=== PATIENT | female | born 1950 | race Caucasian/White ===

== ENCOUNTER 2019-01-23 12:16 | Observation (INO) | payer MEDICARE, BC ==
[2019-01-23] MEDS ORDERED: HYDROcodone/ACETAMIN 5-325 MG* 1 TAB PO ONE (12:44)
--- NOTE | 2019-01-23 13:02 | ED ---
Lower Extremity - HPI Summary HPI Summary: The patient is a 68 year old F presenting to [facility] accompanied by her son with a chief complaint of R leg pain after a fall that occurred at 1000 this morning. The pt states that she was gardening when she slipped on a wet rock and her R leg slid out laterally from under her. She reports that the pain was immediate and that it is rated an 8/10. She states that she has pain with ROM and cannot fully straighten her leg due to pain and swelling. She took ASA for the pain after the fall occurred with little relief. She is unable to bear weight on her right side. She was also unable to remove her R shoe without pain. Symptoms are aggravated by movement and weight bearing but are slightly alleviated by ASA and rest. - History of Current Complaint Chief Complaint: EDHipPelvisInjury Stated Complaint: LEFT HIP PAIN PER PT Time Seen by Provider: 01/23/19 12:28 Hx Obtained From: Patient Mechanism Of Injury: Fall From A Standing Position - slipped on a rock while gardening Onset of Pain: Immediate Onset/Duration: Still Present - since 1000 am today Severity Initially: Severe Severity Currently: Severe Pain Intensity: 8 Pain Scale Used: 0-10 Numeric Timing: Constant, Lasting Hours - since 1000 Location: Is Diffuse - R leg Associated Signs And Symptoms: Positive: Swelling, Knee Pain, Other - pain with ROM Aggravating Factor(s): Movement, Weight Bearing Alleviating Factor(s): Rest, OTC Meds - Allergies/Home Medications Allergies/Adverse Reactions: Allergies Allergy/AdvReac Type Severity Reaction Status Date / Time No Known Allergies Allergy Verified 01/23/19 12:54 Home Medications: Home Medications Cetirizine* [ZyrTEC 10 MG TAB*] 10 mg PO DAILY 01/23/19 [History Confirmed 01/23] Fluticasone NASAL SPRAY 50MCG* [Flonase NASAL SPRAY 50MCG*] 2 spray BOTH NARES DAILY 01/23/19 [History Confirmed 01/23/19] Vit B12/Pyridoxine/Thiamine [Apatate] 1 liq PO DAILY 01/23/19 [History Confirmed 01/23/19] PMH/Surg Hx/FS Hx/Imm Hx Previously Healthy: No Cardiovascular History: Denies: Hx Angina, Hx Coronary Artery Disease, Hx Hypercholesterolemia, Hx Hypertension, Hx Myocardial Infarction, Hx Valvular Heart Disease Respiratory History: Denies: Hx Asthma, Hx Chronic Obstructive Pulmonary Disease (COPD) - Cancer History Hx Chemotherapy: No Hx Radiation Therapy: No - Surgical History Surgical History: None Infectious Disease History: No Infectious Disease History: Denies: Traveled Outside the [place] in Last 30 Days - Family History Known Family History: Negative: Hypertension, Diabetes - Social History Alcohol Use: Occasionally Hx Substance Use: No Substance Use Type: Reports: None Hx Tobacco Use: No Smoking Status (MU): Never Smoked Tobacco Review of Systems Positive: Decreased ROM - R leg, Other - R leg pain Positive: Other - swelling All Other Systems Reviewed And Are Negative: Yes Physical Exam - Summary Physical Exam Summary: Appearance: The patient is well-nourished in no acute distress and in no acute pain. Skin: The skin is warm and dry and skin color reflects adequate perfusion. HEENT: The head is normocephalic and atraumatic. The pupils are equal and reactive. The conjunctivae are clear and without drainage. Nares are patent and without drainage. Mouth reveals moist mucous membranes and the throat is without erythema and exudate. The external ears are intact. The ear canals are patent and without drainage. The tympanic membranes are intact. Neck: The neck is supple with full range of motion and non-tender. There are no carotid bruits. There is no neck vein distension. Respiratory: Chest is non-tender. Lungs are clear to auscultation and breath sounds are symmetrical and equal. Cardiovascular: Heart is regular rate and rhythm. There is no murmur or rub auscultated. There is no peripheral edema and pulses are symmetrical and equal. Abdomen: The abdomen is soft and non-tender. There are normal bowel sounds heard in all four quadrants and there is no organomegaly palpated. Musculoskeletal: There is no back tenderness noted. Prefers to hold R leg with hip flexed. Tender to ROM. There is good capillary refill. There is no peripheral edema or calf tenderness elicited. Neurological: Patient is alert and oriented to person, place and time. The patient has symmetrical motor strength in all four extremities. Cranial nerves are grossly intact. Deep tendon reflexes are symmetrical and equal in all four extremities. Psychiatric: The patient has an appropriate affect and does not exhibit any anxiety or depression Triage Information Reviewed: Yes Vital Signs Reviewed: Yes Diagnostics - Laboratory Result Diagrams: 01/24/19 06:15 01/24/19 06:15 Lab Statement: Any lab studies that have been ordered have been reviewed, and results considered in the medical decision making process. - Radiology Hip/Pelvis X Ray Radiology Interpretation Completed By: Radiologist Summary of Radiographic Findings: NO EVIDENCE FOR FRACTURE, IF THE PATIENT'S SYMPTOMS PERSIST RECOMMEND FOLLOW-UP IMAGING. ED Physician has reviewed this report. - CT Lower Extremity CT CT Interpretation Completed By: Radiologist Summary of CT Findings: NO ACUTE OSSEOUS INJURY. IF SYMPTOMS PERSIST, RECOMMEND REPEAT IMAGING. ED Physician has reviewed this report Re-Evaluation - Re-Evaluation First Eval Re-Evaluation Time: 14:17 Change: Unchanged Comment: Pt was updated about her X Ray findings. Pt was also informed on discharge plan and will be instructed to follow up with your primary care physician in 2-3 days and return to the emergency room for any new or worsening symptoms. Pt declined discharge and wanted another CT of her Lower extremity. Second Eval Re-Evaluation Time: 17:29 Change: Unchanged Comment: Pt's CT of her LE came back negative. The pt still is unable to walk and ambulate due to pain. Pt will be given pain medication. Lower Extremity Course/Dx - Course Course Of Treatment: Ms. Murray has an atypical and severe pain in her right posterior thigh after and abduction injury. She does not appear to be tender at the insertion of her muscles on the pelvis. X-rays negative for any fracture as is CT. She continues to have spasms of pain and neurovascular and motor are intact otherwise. I cannot get her to ambulate after giving her parenteral narcotics and Ativan as a muscle relaxer. She's also had parenteral Toradol. She lives in a single floor with an easy walk and however she cannot ambulate at all with crutches. She does live alone and therefore I have asked the hospitalist to consult. - Diagnoses Provider Diagnoses: Muscle strain of right lower leg - Physician Notifications Discussed Care Of Patient With: Lia Montaño Time Discussed With Above Provider: 18:18 Instructed by Provider To: Other - Discused case with Dr. Montaño, Hospitalist, who is going to evaluate the pt for possible admission. Discharge - Sign-Out/Discharge Documenting (check all that apply): Patient Departure - discharge Patient Received Moderate/Deep Sedation with Procedure: No - Discharge Plan Condition: Stable Disposition: HOME - Billing Disposition and Condition Condition: STABLE Disposition: Home - Attestation Statements Document Initiated by Scribe: Yes Documenting Scribe: Derik Taylor Provider For Whom Scribe is Documenting (Include Credential): Ronak Wilson MD Scribe Attestation: IDerik, scribed for Ronak Wilson MD on 01/24/19 at 0804. Scribe Documentation Reviewed: Yes Provider Attestation: The documentation as recorded by the Derik toney accurately reflects the service I personally performed and the decisions made by me, Ronak Wilson MD Status of Scribe Document: Viewed
[2019-01-23] MEDS ORDERED: LORazepam TAB(*) 1 MG PO ONE (16:57)
[2019-01-23] MEDS ORDERED: Ketorolac INJ* 30 MG/ML 1 ML VIAL IM ONE (16:57)
[2019-01-23] MEDS ORDERED: Lorazepam PYXIS KEY ONE (17:07)
[2019-01-23] MEDS ORDERED: Ondansetron INJ* 2 MG/ML VIAL IV ONE (18:19)
[2019-01-23] MEDS ORDERED: HYDROmorphone INJ1* 1 MG/ML SYRINGE IV SLOW PU ONE (18:19)
[2019-01-23] MEDS ORDERED: Acetaminophen TAB* 325 MG PO PRN (20:14)
[2019-01-23] MEDS ORDERED: oxyCODONE/Acetamin 5/325 MG* TAB PO PRN (20:14)
[2019-01-23] MEDS ORDERED: Morphine INJ* 2 MG/ML 1 ML SYRINGE (TWO MG - NEW SYRINGE VERSION) IV PRN (20:14)
--- NOTE | 2019-01-23 21:53 | HP ---
Amended report to enter cosigning physician. CC: Dr. Kathryn Bliss* HISTORY AND PHYSICAL: DATE OF ADMISSION: 01/23/19 PRIMARY CARE PROVIDER: Dr. Kathryn Bliss. ATTENDING PHYSICIAN: Dr. Montaño* (dictated by Hector Saeg NP). CHIEF COMPLAINT: 1. Right hip pain. 2. Status post fall. HISTORY OF PRESENT ILLNESS: Mrs. Murray is a 68-year-old female with no significant past medical history, who presented to the emergency department today, status post of mechanical fall with right hip pain. While in the emergency department, the patient had right hip and pelvis x-ray, and the right lower extremity CT, both of which showed no evidence of fracture. The patient was provided with p.o. pain medication and IM Toradol. ED provider and ED nurse attempted to walk the patient and she was unable to walk due to pain. Therefore, the patient was given IV Dilaudid and the hospitalists were asked to evaluate for admission. PAST MEDICAL HISTORY: No significant past medical history. PAST SURGICAL HISTORY: No surgical history. HOME MEDICATIONS: 1. Vitamin B12/pyridoxine/thiamine 1 liquid p.o. daily. 2. Flonase 2 sprays both nares daily. 3. Vitamin D 1000 units p.o. weekly. 4. Zyrtec 10 mg p.o. daily. ALLERGIES: The patient has no known drug allergies. FAMILY HISTORY: The patient reports her mother at age 96 of old age and possibly had a history of CAD. The patient reports her dad had multiple strokes and is now . SOCIAL HISTORY: The patient denies tobacco use. The patient reports rare alcohol use. The patient denies drug use. The patient is retired. The patient lives with her . The patient is independent in her ADLs. REVIEW OF SYSTEMS: The patient reports right hip pain, it starts at right hip and extends to right knee. The patient reports the pain was 9/10 on admission, but after pain medication, it is now as 3/10. The patient reports aggravated factors include movement. The patient reports alleviated factors include rest. The patient denies numbness or tingling. The patient denies weakness. A 14- point review of systems was completed and all others were negative. PHYSICAL EXAMINATION GENERAL: Mrs. Murray is a 68-year-old female, who is lying in bed. Appears to be in no acute distress. Appears stated age. VITAL SIGNS: Temp 96.6, HR 94, RR 16, O2 saturation 94% on room air, BP 118/68. HEENT: EOMs intact. PERRLA. Oral mucosa is moist without lesion. Posterior pharynx is clear. NECK: Full range of motion. No lymphadenopathy. RESPIRATORY: Symmetrical chest expansion. No accessory muscle use. Lungs are clear to auscultation. No rhonchi, wheezes or rubs. CV: Regular rate and rhythm. S1 and S2 present. No murmurs, rubs or gallops. EXTREMITIES: The skin is warm and smooth bilaterally. No edema. No clubbing or cyanosis. Pedal pulses 2+ bilaterally. MUSCULOSKELETAL: The patient has full range of motion. She has no deformities. The patient has no pain with abduction or adduction of right leg. The patient has pain with lateral raise of right leg. NEUROLOGIC: Awake, alert, and oriented x4. Strength is 5/5 in the upper and lower extremities. SKIN: Grossly intact without lesions. DIAGNOSTIC STUDIES/LABORATORY DATA: No labs were obtained while in the emergency department. Hip/pelvis x-ray: Impression: No evidence of fracture. Lower extremity CT: No acute obvious injury. ASSESSMENT AND PLAN: Ms. Murray is a 68-year-old female with no significant past medical history, who presented to the emergency department today with complaints of right hip pain after a fall. The patient will be admitted to [facility]. 1. Right hip pain: As mentioned above, the patient has had imaging, which did not reveal any fracture. Given the patient's pain, she will be admitted for pain control. I have ordered IV morphine for severe pain and p.o. Percocet for moderate pain. I have also ordered physical therapy. The patient may require an MRI, but I discussed this may happen as an outpatient given MRI availability on the weekend. 2. FEN: The patient is provided with a regular diet. 3. Code status: The patient is a full code. 4. Surrogate decision maker: The patient's surrogate decision maker will be her , Joshua, [phone]. 5. DVT prophylaxis: Based on the DVT risk assessment, the patient is at high risk. I have ordered subcu heparin. TIME SPENT: Approximately 65 minutes was spent on this admission, greater than half the time was spent with the patient obtaining my history, performing my physical exam, and reviewing my plan of care. This case has been reviewed with my attending, Dr. Montaño, who is agreement with plan of care. Reviewed by HECTOR SAGE NP 01/24/19 @ 1911 [id number] #: [id number]
[2019-01-24] MEDS: Heparin VIAL(*) 5000 UNITS/ML VIAL (FIVE THOUSAND) SUBCUT SCH ×2 (00:33→06:32)
[2019-01-24 06:10] LABS: CO2 Carbon Dioxide 20 mmol/L (22-32); Chloride 108 mmol/L (101-111); Sodium 136 mmol/L (135-145)
[2019-01-24 06:15] LABS: BUN/Creatinine Ratio 19.3 (8-20); Blood Urea Nitrogen 17 mg/dL (6-24); EGFR African American 77.3 (>60); EGFR Non-African American 63.9 (>60); Glucose 101 mg/dL (70-100)
[2019-01-24 06:19] LABS: Anion Gap 8 mmol/L (2-11)
[2019-01-24 06:31] LABS: ABS Eosinophils 0.1 10^3/ul (0-0.6); ABS Lymphocytes 1.9 10^3/ul (1.0-4.8); Hematocrit 43 % (35-47); Hemoglobin 13.9 g/dL (12.0-16.0); Lymphocyte % 26.8 %; Mean Corpuscular HGB Conc 33 g/dL (31-36); Mean Corpuscular Hemoglobin 30 pg (27-31); Mean Corpuscular Volume 91 fL (80-97); Mean Platelet Volume 9.9 fL (7.4-10.4); Nucleated Red Blood Cells % 0.1; Platelet Count 197 10^3/uL (150-450); Red Blood Count 4.69 10^6 /uL (3.70-4.87); Red Cell Distribution Width 14 % (10-15)
[2019-01-24 06:51] VITALS: BP 121/62
[2019-01-24] MEDS ORDERED: PYRIDOXINE PO SCH (09:00)
[2019-01-24] MEDS ORDERED: CYANOCOBALAMIN PO SCH (09:00)
[2019-01-24] MEDS ORDERED: THIAMINE PO SCH (09:00)
[2019-01-24] MEDS ORDERED: Fluticasone NASAL SPRAY 50MCG* 16 gm SPRAY BTL BOTH NARES SCH (09:00)
[2019-01-24] MEDS ORDERED: Cetirizine* 10 MG TAB PO SCH (09:00)
--- NOTE | 2019-01-25 12:32 | DS ---
DISCHARGE SUMMARY: DATE OF ADMISSION: 01/23/19 DATE OF DISCHARGE: 01/24/19 DISCHARGE DIAGNOSES: 1. Right hamstring injury. 2. Status post fall. 3. History of allergic rhinitis. HISTORY: Mrs. Yun Murray is a 68-year-old woman admitted with right posterior leg pain with inability to walk after having fall while gardening. Please see the dictated admission note for details of the present illness, past medical history, family history, social and personal history, review of systems , and physical examination. LABORATORY DATA: CBC: WBC 7.0, H and H 15.9/43, MCV 91, PLT 197,000. Chemistry: Sodium 136, potassium 4.4, chloride 108, CO2 of 20, BUN and creatinine 17/0.88, glucose 101. IMAGING DATA: Hip pelvis x-ray was negative for fracture. Lower extremity CT of the right femur showed no fracture, no arthropathy, essentially normal. HOSPITAL COURSE: The patient was seen in the emergency room. On evaluation, she was found to have pain with movement of the right hip. Workup showed no fracture. She was, however, unable to walk. She was admitted for pain control, PT evaluation. She received Toradol, morphine, Percocet, hydrocodone, lorazepam , and ondansetron. Her pain improved. She had physical therapy evaluation. She was able to walk with walker, not with crutches. The patient stated she had a walker at home. On exam on the morning, following admission, she was noted to have swelling in her posterior thigh, felt to have a hamstring injury. She had pain with extension of the knee. She preferred to keep her hip flexed, knee bent. Physical therapist advised her that it could be 4 to 6 weeks for healing. The patient told the physical therapist that she had a walk-in basement level fully equipped kitchen and bathroom as well as a hospital bed. She could live in the basement. The patient felt that she could be safely discharged home. She was able to walk to the bathroom with the physical therapist. The patient was instructed to use ice. She is being discharged home in improved condition. DISCHARGE MEDICATIONS: Her medications at the time of discharge are: 1. Hydrocodone APAP 5/325 one q.4 h. p.r.n. pain MDD 4. 2. Cetirizine 10 mg daily as needed for allergies. 3. Vitamin D 2000 units daily. 4. Fluticasone nasal spray 2 sprays each nostril daily. 5. B12 of 1000 mcg daily. DISCHARGE INSTRUCTIONS: The patient will follow up with me in 1 to 2 weeks. She will be using a walker. Diet is regular. [id number] #: [id number] MTDD
[2019-01-29] MEDS ORDERED: Cholecalciferol TAB* 1000 UNITS PO SCH (09:00)
== END 2019-01-24 11:20 | disposition home or self-care (01) ==
LOC: ED 12:16 → MED 20:14
PROVIDERS: ADMIT Hospitalist; ATTEND Internal Medicine Geriatric Medicine
DX: S89.91XA Unspecified injury of right lower leg, initial encounter (principal); M79.604 Pain in right leg; W19.XXXA Unspecified fall, initial encounter; Y92.9 Unspecified place or not applicable; R60.9 Edema, unspecified; Z87.09 Personal history of other diseases of the respiratory system
CPT/HCPCS: 36415; 80048; 85025; 96372; 96374; 96375; 99283; A9270-GY; G0378; G8978-GP-CL; G8979-GP-CL; G8980-GP-CL; J1170; J1644; J1885; J2270; J2405